=== PATIENT | male | born 1945 | race Caucasian/White ===

== ENCOUNTER → 2018-07-03 | Outpatient (REF) | payer MEDICARE | LOC: M SMT 17:19 | PROVIDERS: ATTEND Nurse Practitioner Family | DX: R97.20 Elevated prostate specific antigen [PSA] (principal); N39.43 Post-void dribbling | CPT/HCPCS: 51798; 87086; G0463 ==

== ENCOUNTER → 2018-08-07 | Outpatient (CLI) | payer MEDICARE ==
--- NOTE | 2018-08-07 13:39 | REP ---
TRANSRECTAL PROSTATE ULTRASOUND WITH ULTRASOUND GUIDANCE FOR PROSTATE BIOPSY: Real-time sonographic evaluation of the prostate performed utilizing transrectal probe. The size of the gland is 5.1 x 3.7 x 5.2 cm for a total volume of 51.1 mL. There appears to be two nodules on the left side, measuring 11 x 9 and 8 x 7 mm. There is one nodular area in the right lobe measures 2 cm in diameter and another nodule in the left lobe measures about 1.9 cm in diameter. Seminal vesicles appear symmetrical. Ultrasound guidance was provided for Dr. Zhou who performed ultrasound-guided biopsy of the prostate. Electronically Signed by Emre Hayes MD 08/07/2018 07:26 P
== END ==
LOC: M SMT PRO 08:08
PROVIDERS: ATTEND Nurse Practitioner Family
DX: C61 Malignant neoplasm of prostate (principal)
CPT/HCPCS: 55700; 76872; 76942; G0416

== ENCOUNTER → 2018-09-20 | Outpatient (CLI) | payer MEDICARE ==
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
== END ==
LOC: M ONCR 13:30
PROVIDERS: ATTEND Radiology Radiation Oncology
DX: C61 Malignant neoplasm of prostate (principal)

== ENCOUNTER → 2018-10-09 | Outpatient (CLI) | payer MEDICARE ==
--- NOTE | 2018-10-09 14:11 | REP ---
TRANSRECTAL PROSTATE SONOGRAPHY: HISTORY: Elevated PSA. FINDINGS: Transrectal sonographic guidance is provided to Dr. Zhou who placed fiducial markers in the prostate. Electronically Signed by Matthias Monaco MD 10/09/2018 03:05 P
== END ==
LOC: M SMT 09:06 → M SMT PRO 09:06
PROVIDERS: ATTEND Urology
DX: C61 Malignant neoplasm of prostate (principal)
CPT/HCPCS: 55876; 76872; 76942; A4648

== ENCOUNTER → 2018-11-13 | Outpatient (RCR) | payer MEDICARE ==
--- NOTE | 2018-10-24 11:20 | RADONC ---
RADIATION ONCOLOGY SIMULATION NOTE DATE: 10/24/2018 CHART NUMBER: [id number] SIMULATION NOTE: Mr. Leung was taken to the CT scan for CT simulation of his prostate field. CT was accomplished without difficulty or discomfort. Radiation treatment planning is underway and radiation treatments will begin subsequently. An immobilization device was created without difficulty or discomfort. It will be used throughout the course of treatment. I was physically present throughout the course CT simulation.
--- NOTE | 2018-11-14 08:12 | RADONC ---
RADIATION ONCOLOGY PROGRESS NOTE DATE: 11/12/2018 CHART NUMBER: [id number] Mr. Leung is presently at a dose of 720 cGy to his prostate and is tolerating treatments quite well at this point with no complaints related to his radiation therapy. He is having no urinary or bowel difficulties. No bone pain. REVIEW OF SYSTEMS: The patient's review of systems is noncontributory. Denies nausea, vomiting, fevers, chills, night sweats, diplopia, headaches, anxiety or depression, anorexia, weight loss, visual disturbances, chest pain, urinary or bowel difficulties, bone pain, or neurological problems. PHYSICAL EXAMINATION: The patient's skin is in good condition with no evidence of moist or dry desquamation. The remainder of his physical exam remains unchanged. Mr. Leung is tolerating treatments quite well, and radiation will continue as scheduled.
== END ==
LOC: M ONCR 10-24 10:59
PROVIDERS: ATTEND Radiology Radiation Oncology
DX: C61 Malignant neoplasm of prostate (principal)

== ENCOUNTER → 2018-12-14 | Outpatient (RCR) | payer MEDICARE ==
--- NOTE | 2018-11-19 13:00 | RADONC ---
RADIATION ONCOLOGY PROGRESS NOTE DATE: 11/19/2018 CHART NUMBER: [id number] Mr. Leung is presently at a dose of 1620 cGy to his prostate and is tolerating treatments quite well at this point with no complaints related to his radiation therapy. He is having no urinary or bowel difficulties and no bone pain. REVIEW OF SYSTEMS: The patient's review of systems is noncontributory. He denies nausea, vomiting, fevers, chills, night sweats, diplopia, headaches, anxiety or depression, anorexia, weight loss, visual disturbances, chest pain, urinary or bowel difficulties, bone pain or neurological problems. PHYSICAL EXAMINATION: The patient's skin is in good condition with no evidence of radiation change present. The remainder of his physical exam remains unchanged as well. Mr. Leung is tolerating treatments quite well and radiation will continue as scheduled.
--- NOTE | 2018-11-26 14:55 | RADONC ---
RADIATION ONCOLOGY PROGRESS NOTE DATE: 11/26/2018 CHART NUMBER: [id number] Mr. Leung is a gentleman who has a diagnosis of prostate cancer and he is receiving local regional radiotherapy. He has achieved a dose thus far of 2520 cGy of an anticipated 7740 cGy. Thus far his treatments have been fairly well tolerated. REVIEW OF SYSTEMS: He specifically denies any nausea, vomiting, diarrhea, dysuria, hematuria or blood per rectum. His energy level is satisfactory and he is able to maintain most day-to-day activities without any alteration of his lifestyle. Skin irritation is denied. The remainder of the review of systems is noncontributory. EXAMINATION FINDINGS: The skin within the irradiated volume shows neither erythema nor desquamation. Lymphatics: No palpable peripheral lymphadenopathy is appreciated. The remainder of the physical examination is unchanged. IMPRESSION: Tolerating therapy well. PLAN: Treatments to continue. MTDD
--- NOTE | 2018-12-03 14:53 | RADONC ---
RADIATION ONCOLOGY PROGRESS NOTE: DATE: 12/03/2018 CHART NUMBER: [id number] Mr. Leung is presently at a dose of 3,420 cGy to his prostate and is tolerating treatments quite well at this point with no complaints related to his radiation therapy. He is having no urinary or bowel difficulties and no bone pain. REVIEW OF SYSTEMS: The patient's review of systems is noncontributory. He denies nausea, vomiting, fevers, chills, night sweats, diplopia, headaches, anxiety or depression, anorexia, weight loss, visual disturbances, chest pain, urinary or bowel difficulties, bone pain, or neurological problems. PHYSICAL EXAMINATION: The patient's skin is in good condition with no evidence of moist or dry desquamation. The remainder of his physical exam remains unchanged. Mr. Leung is tolerating treatments quite well and radiation will continue as scheduled.
--- NOTE | 2018-12-11 15:22 | RADONC ---
RADIATION ONCOLOGY PROGRESS NOTE DATE: 12/11/2018 CHART NUMBER: [id number] Mr. Leung is presently at a dose of 4320 cGy to his prostate and is tolerating treatments quite well at this point with no complaints related to his radiation therapy. He is having no urinary or bowel difficulties. No bone pain. REVIEW OF SYSTEMS: The patient's review of systems is noncontributory. Denies nausea, vomiting, fevers, chills, night sweats, diplopia, headaches, anxiety or depression, anorexia, weight loss, visual disturbances, chest pain, urinary or bowel difficulties, bone pain, or neurological problems. PHYSICAL EXAMINATION: The patient's skin is in good condition with no evidence of radiation change present. There is no moist or dry desquamation. The remainder of his physical exam remains unchanged. Mr. Leung is tolerating treatments quite well, and radiation will continue as scheduled.
== END ==
LOC: M ONCR 11-14 11:31
PROVIDERS: ATTEND Radiology Radiation Oncology
DX: C61 Malignant neoplasm of prostate (principal)

== ENCOUNTER 2019-01-07 11:34 | Outpatient (RCR) | payer MEDICARE ==
--- NOTE | 2018-12-17 12:54 | RADONC ---
RADIATION ONCOLOGY PROGRESS NOTE DATE: 12/17/2018 CHART #: [id number] Mr. Leung who has a diagnosis of adenocarcinoma of the prostate is currently receiving local regional radiotherapy. His dose thus far is 5040 cGy of an anticipated 7740 cGy. Thus far, he is tolerating his therapy reasonably well and has no specific untoward side effects. REVIEW OF SYSTEMS: He specifically denies any nausea, vomiting, diarrhea, dysuria, hematuria or blood per rectum. His energy level is such that he is able to maintain most day-to-day activities without any alteration of his lifestyle. He denies any skin irritation or other major untoward side effects. EXAMINATION FINDINGS: The skin within the irradiated volume shows neither erythema nor desquamation. Lymphatics: No palpable peripheral lymphadenopathy is appreciated. Lungs: Clear to auscultation and to percussion. The remainder of the physical examination is unchanged. IMPRESSION: Tolerating therapy well. PLAN: Treatments to continue as outlined.
--- NOTE | 2018-12-25 06:45 | RADONC ---
RADIATION ONCOLOGY PROGRESS NOTE DATE: 12/24/2018 CHART #: [id number] Mr. Leung is presently at a dose of 5940 cGy to his prostate and is tolerating treatments quite well at this point with no complaints related to his radiation therapy. He is having no urinary or bowel difficulties and no bone pain. REVIEW OF SYSTEMS: The patient's review of systems is noncontributory. Denies nausea, vomiting, fevers, chills, night sweats, diplopia, headaches, anxiety or depression, anorexia, weight loss, visual disturbances, chest pain, urinary or bowel difficulties, bone pain, or neurological problems. PHYSICAL EXAMINATION: The patient's skin is in good condition with no evidence of moist or dry desquamation. The remainder of his physical exam remains unchanged. Mr. Leung is tolerating treatments quite well and radiation will continue as scheduled.
--- NOTE | 2019-01-01 07:30 | RADONC ---
RADIATION ONCOLOGY PROGRESS NOTE: DATE: 12/31/2018 CHART NUMBER: [id number] Mr. Leung is presently at a dose of 6840 cGy to his prostate and is tolerating treatments quite well at this point with no complaints related to his radiation therapy. He is having no urinary or bowel difficulties and no bone pain. REVIEW OF SYSTEMS: The patient's review of systems is noncontributory. He denies nausea, vomiting, fevers, chills, night sweats, diplopia, headaches, anxiety or depression, anorexia, weight loss, visual disturbances, chest pain, urinary or bowel difficulties, bone pain, or neurological problems. PHYSICAL EXAMINATION: The patient's skin is in good condition with no evidence of moist or dry desquamation. The remainder of his physical exam remains unchanged. Mr. Leung is tolerating treatments quite well and radiation will continue as scheduled.
--- NOTE | 2019-01-08 12:04 | RADONC ---
RADIATION THERAPY TREATMENT SUMMARY DATE: 01/07/2019 CHART NUMBER: [id number] DIAGNOSIS: Prostate cancer. STAGE: IIB, [id number], Badger score 7 (3+4), grade group 2, PSA 8.11. ECOG PERFORMANCE STATUS: 0. SUMMARY: PLAN OF RADIOTHERAPY: Definitive. DATE RADIOTHERAPY STARTED: 11/07. DATE RADIOTHERAPY COMPLETED: 01/07/2019. DOSE: The patient received a total of 7740 cGy administered in 43 fractions over 61 elapsed days. He was treated exclusively via IMRT/IGRT. A 6 MG photon beam was utilized for treatment delivery. Initially the patient was treated to a total of 5400 cGy and thereafter campbell were reduced for an additional 2340 cGy bringing the ultimate given dose to the aforementioned 7740 cGy. IMRT/IGRT was utilized throughout the entire treatments. STATUS OF TUMOR: There was no evidence of distant metastatic spread clinically nor clinical evidence of local progressive disease during his course of radiotherapy. TOLERANCE: In general treatments were quite well tolerated as he denied any nausea, vomiting, diarrhea, dysuria, hematuria or blood per rectum. His energy level remained relatively constant and he was able to maintain most day-to-day activities without any significant alteration of his lifestyle. Skin irritation was not reported. DISPOSITION: Return to clinic in approximately 1 month or as needed and he was advised to return to his referring physicians as per their directions and instructions. Thank you for allowing us the opportunity of participation in the management this very fine gentleman. cc: MD Pepe Salazar MD
== END 2019-01-13 ==
LOC: M ONCR 11:34
PROVIDERS: ATTEND Radiology Radiation Oncology
DX: C61 Malignant neoplasm of prostate (principal)

== ENCOUNTER → 2019-02-13 | Outpatient (CLI) | payer MEDICARE ==
--- NOTE | 2019-02-14 07:21 | RADONC ---
RADIATION ONCOLOGY FOLLOWUP NOTE: DATE: 02/13/2019 CHART NUMBER: [id number] DIAGNOSIS: Prostate cancer. STAGE: II B, T2b, N0, M0, [place] score 7 (3-4), grade group 2, PSA 8.11. ECOG PERFORMANCE STATUS: 0 Mr. Leung is a very pleasant 73-year-old white male with the diagnosis of what appears to be a stage II B, T2b, N0, M0 moderate to poorly differentiated Nora score 7 (3-4) adenocarcinoma of the prostate with initial PSA level of 8.11 who is presenting to us today for routine followup visit 1 month post completion of external beam radiation therapy. The patient presents today reporting that he is doing quite well with no complaints at this time related to his radiation therapy or disease. He is having no urinary or bowel difficulties. No bone pain. REVIEW OF SYSTEMS: The patient's review of systems is noncontributory. He denies nausea, vomiting, fevers, chills, night sweats, diplopia, headaches, anxiety or depression, anorexia, weight loss, visual disturbances, chest pain, urinary or bowel difficulties, bone pain, or neurological problems. PHYSICAL EXAMINATION: The patient is a well-developed, well-nourished male in no acute distress. HEENT exam is normocephalic, atraumatic. Extraocular movements are intact. There is no palpable cervical, supraclavicular, infraclavicular, axillary, or inguinal lymphadenopathy present. Lungs are clear to auscultation and percussion. Heart has a regular rate and rhythm. Abdomen is benign with no hepatosplenomegaly, masses, or tenderness. Rectal examination reveals a normal anal sphincter tone. His prostate is smooth with no evidence of nodularity. Skeletal examination reveals no tenderness to pressure or percussion of the bony skeleton. Extremities reveal no clubbing, cyanosis, or edema. Neurologic exam is grossly intact, as is the remainder of the physical examination. ASSESSMENT: The patient is clinically stable at this time. He is being seen by Dr. Zhou on a routine basis and was just seen by Dr. Zhou last week. In light of his close followup and management with his urologist Dr. Pepe Zhou, I have discharged him from my followup except on a p.r.n. basis. cc: MD Pepe Salazar MD
== END ==
LOC: M ONCR 11:00
PROVIDERS: ATTEND Radiology Radiation Oncology
DX: C61 Malignant neoplasm of prostate (principal)

== ENCOUNTER → 2019-03-07 | Outpatient (REF) | payer MEDICARE ==
[2019-03-08 13:30] LABS: COMPLEMENT C3 108 MG/DL (90-180); COMPLEMENT C4 30 MG/DL (10-40); TOTAL PROTEIN 7.2 GM/DL (6.4-8.2)
[2019-03-08 13:40] LABS: HEPATITIS B SURFACE ANTIBODY NEGATIVE (POSITIVE)
[2019-03-08 13:52] LABS: HEPATITIS B SURFACE ANTIGEN NEGATIVE (NEGATIVE)
[2019-03-08 14:20] LABS: HEPATITIS B CORE ANTIBODY IGM NEGATIVE (NEGATIVE); HEPATITIS C VIRUS ABY INDEX < 0.0 INDEX (<0.8)
[2019-03-12 12:51] LABS: ALBUMIN % 60.5 % (55.8-66.1); ALPHA-1-GLOBULIN % 4.1 % (2.9-4.9); ALPHA-2-GLOBULINS % 11.9 % (7.1-11.8); BETA-1-GLOBULINS % 6.9 % (4.7-7.2); BETA-2-GLOBULINS % 5.7 % (3.2-6.5); GAMMA GLOBULIN % 10.9 % (11.1-18.8)
[2019-03-12 12:52] LABS: ALBUMIN 4.36 GM/DL (3.29-5.55); ALPHA-2-GLOBULINS 0.86 GM/DL (0.42-0.99); BETA-2-GLOBULINS 0.41 GM/DL (0.19-0.55); GAMMA GLOBULINS 0.78 GM/DL (0.65-1.58)
[2019-03-14 09:15] LABS: ANCA-ATYPICAL <1:20 titer (Neg:<1:20); ANTI DS-DNA AB <1:10 titer (.); ANTINUCLEAR ANTIBODIES DIRECT Negative (Negative); CYTOPLASMIC NEUTROP AB ANCA-C <1:20 titer (Neg:<1:20); PERINUCLEAR AB ANCA-P <1:20 titer (Neg:<1:20)
[2019-03-14 15:24] LABS: UPEP INTERPRETATION NO M-SPIKE NOTED; URINE VOLUME RANDOM ML
== END ==
LOC: M LAB REF 12:47
PROVIDERS: ATTEND Internal Medicine Nephrology
DX: R80.9 Proteinuria, unspecified (principal)

== ENCOUNTER → 2019-10-01 | Outpatient (REF) | payer MEDICARE | LOC: M LAB REF 16:34 | PROVIDERS: ATTEND Dermatology | DX: C44.519 Basal cell carcinoma of skin of other part of trunk (principal); D23.22 Other benign neoplasm of skin of left ear and external auricular canal | CPT/HCPCS: 11102; 11103; 88305; G0463 ==

== ENCOUNTER → 2019-10-16 | Outpatient (REF) | payer MEDICARE | LOC: CANPREREF → M LAB REF 17:12 | PROVIDERS: ATTEND Dermatology | DX: C44.519 Basal cell carcinoma of skin of other part of trunk (principal) ==

== ENCOUNTER → 2019-10-16 | Outpatient (REF) | payer MEDICARE | LOC: M LAB REF 10:02 | PROVIDERS: ATTEND Dermatology | DX: C44.219 Basal cell carcinoma of skin of left ear and external auricular canal (principal); C44.519 Basal cell carcinoma of skin of other part of trunk ==

== ENCOUNTER → 2021-10-21 | Outpatient (REF) | payer MEDICARE ==
[2021-10-21 13:51] LABS: APPEARANCE, URINE CLEAR (CLEAR); BACTERIA, URINE AUTO NEGATIVE (NEGATIVE); BILIRUBIN, URINE AUTO NEGATIVE (NEGATIVE); BLOOD, URINE BLOOD 1+ (NEGATIVE); COLOR, URINE YELLOW (YELLOW); GLUCOSE, URINE (UA) AUTO 3+ mg/dL (NEGATIVE); KETONE, URINE AUTO NEGATIVE (NEGATIVE); LEUKOCYTE ESTERASE, URINE AUTO NEGATIVE (NEGATIVE); NITRITE, URINE AUTO NEGATIVE (NEGATIVE); PROTEIN, URINE AUTO 2+ mg/dL (NEGATIVE); RBC, URINE AUTO 0 /HPF (0-3); SPECIFIC GRAVITY URINE AUTO 1.033 (1.002-1.035); SQUAMOUS EPITHELIAL CELL UR AU 0 /HPF (0-6); UROBILINOGEN, URINE AUTO 0.2 mg/dL (0.0-2.0); WBC, URINE AUTO 0 /HPF (0-3)
== END ==
LOC: M SMT 12:50
PROVIDERS: ATTEND Urology
DX: R32 Unspecified urinary incontinence (principal)

== ENCOUNTER → 2022-04-13 | Outpatient (REF) | payer MEDICARE ==
[2022-04-13 15:49] LABS: APPEARANCE, URINE MANUAL CLEAR (CLEAR); COLOR, URINE MANUAL YELLOW (YELLOW)
[2022-04-13 15:50] LABS: BILIRUBIN, URINE MANUAL NEGATIVE (NEGATIVE); BLOOD URINE MANUAL NEGATIVE (NEGATIVE); GLUCOSE, URINE (UA) MANUAL 4+(1000 MG/DL) mg/dL (NEGATIVE); KETONE, URINE MANUAL NEGATIVE (NEGATIVE); LEUKOCYTE ESTERASE, URINE MAN NEGATIVE (NEGATIVE); NITRITE, URINE MANUAL NEGATIVE (NEGATIVE); PROTEIN, URINE MANUAL 1+ mg/dL (NEGATIVE); UROBILINOGEN, URINE MANUAL NORMAL (NORMAL)
[2022-04-13 16:24] LABS: BACTERIA, URINE NONE SEEN; HYALINE CAST, URINE NONE SEEN /lpf (0-1); RBC, URINE 0-1 /hpf (0-3); SQUAMOUS EPITHELIAL CELL URINE SMALL AMOUNT /hpf (SMALL AMT); WBC, URINE 0-1 /hpf (0-3)
== END ==
LOC: M SMT 15:08
PROVIDERS: ATTEND Urology
DX: N39.0 Urinary tract infection, site not specified (principal)

== ENCOUNTER → 2023-08-15 | Outpatient (REF) | payer MEDICARE ==
[2023-08-15 18:28] LABS: CREATININE,RANDOM URINE 107.3 MG/DL
[2023-08-15 18:34] LABS: TOTAL PROTEIN,RANDOM URINE 305.4 MG/DL (0.0-14.0)
== END ==
LOC: M LAB REF 17:15
PROVIDERS: ATTEND Internal Medicine Nephrology
DX: R80.9 Proteinuria, unspecified (principal)

== ENCOUNTER → 2024-02-12 | Outpatient (REF) | payer OTHER, MEDICARE ==
[2024-02-12 18:36] LABS: CREATININE,RANDOM URINE 100.8 MG/DL
[2024-02-12 18:38] LABS: TOTAL PROTEIN,RANDOM URINE 193.5 MG/DL (0.0-14.0)
== END ==
LOC: M LAB REF 16:59
PROVIDERS: ATTEND Internal Medicine Nephrology
DX: R80.9 Proteinuria, unspecified (principal)

== ENCOUNTER → 2024-08-05 | Outpatient (REF) | payer OTHER, MEDICARE ==
[2024-08-05 18:22] LABS: FERRITIN 14.3 NG/ML (10.5-307.3)
[2024-08-05 18:27] LABS: IRON (FE) 25 UG/DL (65-175); PERCENT SATURATION 8.2 % (19.7-50.0); TOTAL IRON BINDING CAPACITY 305 UG/DL (250-425)
[2024-08-05 18:29] LABS: VITAMIN B12 LEVEL > 2000 PG/ML (211-911)
== END ==
LOC: M LAB REF 17:16
PROVIDERS: ATTEND Internal Medicine Nephrology
DX: N18.9 Chronic kidney disease, unspecified (principal); D63.1 Anemia in chronic kidney disease

== ENCOUNTER 2024-08-21 13:55 | Outpatient (CLI) | payer MEDICARE, OTHER ==
[~2024-08-21] VITALS: Ht 167.6 cm; Wt 65.9 kg
[~2024-08-21 13:55] MED LIST: ALBUTEROL SULFATE 2.5MG/0.5ML INH NEB SOLN INH PRN; EPINEPHrine INJ 1 MG/ML 1ML AMP IM PRN; NS (Normal Saline) 0.9% 1,000 ML IV SCH; diphenhydrAMINE 50MG/ML VIAL IV PRN; methylPREDNISolone 125MG 2ML VIAL IV PRN
[2024-08-21 14:20] VITALS: BP 158/78; O2SAT 98
[2024-08-21] MEDS: IRON SUCROSE 300 MG in NS 250 ML IV ONE (14:49)
[2024-08-21 16:34] VITALS: BP 148/66; O2SAT 96
== END 2024-08-21 16:35 ==
LOC: M INFU 13:55
PROVIDERS: ATTEND Internal Medicine Nephrology
DX: E61.1 Iron deficiency (principal); Z88.5 Allergy status to narcotic agent
CPT/HCPCS: 96365; 96366; J1756

== ENCOUNTER 2024-09-04 13:45 | Outpatient (CLI) | payer MEDICARE ==
[~2024-09-04] VITALS: Ht 167.6 cm; Wt 65.1 kg
[2024-09-04] MEDS: IRON SUCROSE 300 MG in NS 250 ML IV ONE (14:19)
[2024-09-04 16:10] VITALS: BP 169/75; O2SAT 98
== END 2024-09-04 16:00 ==
LOC: M INFU 13:45
PROVIDERS: ATTEND Internal Medicine Nephrology
DX: E61.1 Iron deficiency (principal); Z88.5 Allergy status to narcotic agent
CPT/HCPCS: 96365; 96366; J1756

== ENCOUNTER 2024-09-11 13:45 | Outpatient (CLI) | payer MEDICARE ==
[~2024-09-11] VITALS: Ht 167.6 cm; Wt 65.9 kg
[2024-09-11 13:45] VITALS: BP 164/80; O2SAT 97
[~2024-09-11 13:45] MED LIST changes: -NS (Normal Saline) 0.9% 1,000 ML IV SCH
[2024-09-11] MEDS ORDERED: NS (Normal Saline) 0.9% 1,000 ML IV SCH (14:00)
[2024-09-11] MEDS: IRON SUCROSE 300 MG in NS 250 ML OVER 90 MIN. IV ONE (14:32)
[2024-09-11 16:12] VITALS: BP 175/81; O2SAT 97
== END 2024-09-11 16:20 ==
LOC: M INFU 13:45
PROVIDERS: ATTEND Internal Medicine Nephrology
DX: D50.0 Iron deficiency anemia secondary to blood loss (chronic) (principal); Z88.5 Allergy status to narcotic agent
CPT/HCPCS: 96365; 96366; J1756